=== PATIENT | female | born 1965 | race Caucasian/White ===

== ENCOUNTER 2021-03-26 18:34 | Emergency (ER) | payer BC, OTHER ==
[~2021-03-26] VITALS: Ht 172.7 cm; Wt 72.6 kg
[~2021-03-26 18:34] MED LIST: LOSARTAN POTASS25 MG PO; SYNTHROID50 MCG PO
== END 2021-03-26 21:00 | disposition home or self-care (01) ==
LOC: ER 19:19
DX: S93.602A Unspecified sprain of left foot, initial encounter (principal); W50.0XXA Accidental hit or strike by another person, initial encounter; Y93.01 Activity, walking, marching and hiking; Y92.008 Other place in unspecified non-institutional (private) residence as the place of occurrence of the external cause; I10 Essential (primary) hypertension
CPT/HCPCS: 99283